=== PATIENT | female | born 1970 | race Caucasian/White ===

== ENCOUNTER 2019-01-13 08:46 | Outpatient (CLI) | payer BC ==
--- NOTE | 2019-01-13 09:22 | RAD ---
Radiograph left foot 3 views: HISTORY: 48-year-old female with nontraumatic left foot pain FINDINGS: No fracture or dislocation. No high-grade DJD. No periostitis. No permeative, osteoblastic, or osteol ytic lesion. The first metatarsal is congenitally short. No hallux valgus. IMPRESSION: 1. Developmentally short first metatarsal. 2. Otherwise negative.
== END 2019-01-13 08:47 | disposition home or self-care (01) ==
LOC: BICRAD 08:46
PROVIDERS: ATTEND Family Medicine
DX: M79.672 Pain in left foot (principal); Q66.89 Other specified congenital deformities of feet

== ENCOUNTER 2021-08-15 13:18 | Outpatient (CLI) | payer BC | END 2021-08-15 13:19 | disposition home or self-care (01) | LOC: BICMAMMO 13:18 | PROVIDERS: ATTEND Family Medicine | DX: Z12.31 Encounter for screening mammogram for malignant neoplasm of breast (principal) | CPT/HCPCS: 77063; 77067 ==

== ENCOUNTER 2022-02-13 10:03 | Emergency (ER) | payer OTHER, BC ==
[2022-02-13] MEDS ORDERED: Acetaminophen 500 MG TAB ONE (12:22)
== END 2022-02-13 13:05 | disposition home or self-care (01) ==
LOC: ERS 10:03
DX: S83.012A Lateral subluxation of left patella, initial encounter (principal); M19.90 Unspecified osteoarthritis, unspecified site; X50.3XXA Overexertion from repetitive movements, initial encounter; Y92.69 Other specified industrial and construction area as the place of occurrence of the external cause; Z79.899 Other long term (current) drug therapy